=== PATIENT | male | born 1970 | race American Indian/Alaskan Native ===

== ENCOUNTER 2017-08-18 13:09 | Emergency (ER) | payer OTHER ==
[2017-08-18 13:25] VITALS: O2SAT 98
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
--- NOTE | 2017-08-18 14:56 | RAD ---
PROCEDURE: Radiographs of the Lumbar Spine. HISTORY: Injury COMPARISON: No prior. FINDINGS: BONES: There is normal alignment of the lumbar vertebral bodies. There is normal lumbar lordosis. There is no acute fracture, spondylolysis or spondylolisthesis. DISC SPACES: The disc heights are maintained. There is multilevel facet arthropathy. OTHER FINDINGS: None. IMPRESSION: No acute fracture, spondylolysis or spondylolisthesis.
[2017-08-18 15:06] VITALS: BP 124/79; PULSE 70; RESP 20; TEMP 98.3
== END 2017-08-18 15:06 | disposition home or self-care (01) ==
LOC: C.ER 13:09
DX: S39.012A Strain of muscle, fascia and tendon of lower back, initial encounter (principal); V43.52XA Car driver injured in collision with other type car in traffic accident, initial encounter; Y92.410 Unspecified street and highway as the place of occurrence of the external cause

== ENCOUNTER 2017-10-31 13:05 | Emergency (ER) | payer OTHER ==
[2017-10-31 13:23] VITALS: RESP 20
[2017-10-31] MEDS ORDERED: Sodium Chloride 0.9% 1,000 ML IV ONE (14:34)
[2017-10-31] MEDS ORDERED: Sodium Chloride 0.9% 1,000 ML ONE (14:49)
[2017-10-31 14:50] LABS: BASO # 0.1 K/uL (0.0-0.2); EOS % 0.3 % (0.0-4.0); HEMOGLOBIN 14.1 g/dL (12.0-18.0); LYMPH # 1.4 K/uL (1.0-4.3); LYMPH % 17.3 % (20.0-40.0); MEAN CELL VOLUME 90.6 fL (80.0-94.0); MEAN CORPUSCULAR HEMOGLOBIN 31.7 pg (27.0-31.0); MEAN PLATELET VOLUME 8.7 fL (7.2-11.7); MONO # 0.7 K/uL (0.0-0.8); MONO % 8.8 % (0.0-10.0); NEUT % 72.6 % (50.0-75.0); RBC 4.45 Mil/uL (4.40-5.90); RED CELL DISTRIBUTION WIDTH 12.7 % (11.5-14.5); WHITE BLOOD COUNT 8.2 K/uL (4.8-10.8)
--- NOTE | 2017-10-31 14:51 | C.PDOC ---
History Of Present Illness 47yo male with history of hypertension, diabetes, presents to ED with complaints of multiple episodes of bilious vomiting since yesterday. Patient reports he initially had a headache and after that has the episodes of vomiting. He states his symptoms started after he had [place] food and he was unable to sleep all last night. He denies any associated abdominal pain, diarrhea, chest pain or shortness of breath. Time Seen by Provider: 10/31/17 14:25 Chief Complaint (Nursing): GI Problem History Per: Patient History/Exam Limitations: no limitations Onset/Duration Of Symptoms: Days Current Symptoms Are (Timing): Still Present Associated Symptoms: Vomiting. denies: Fever, Chills, Diarrhea, Urinary Symptoms Additional History Per: Patient Past Medical History Reviewed: Historical Data, Nursing Documentation, Vital Signs Vital Signs: Last Vital Signs Temp 99.1 F 10/31/17 16:46 Pulse 62 10/31/17 16:46 Resp 20 10/31/17 16:46 BP 155/75 H 10/31/17 16:46 Pulse Ox 95 10/31/17 16:46 - Medical History PMH: Diabetes (type 2), HTN Surgical History: No Surg Hx Family History: States: No Known Family Hx, Unknown Family Hx - Social History Hx Tobacco Use: No Hx Alcohol Use: Yes Hx Substance Use: Yes - Immunization History Hx Tetanus Toxoid Vaccination: No Hx Influenza Vaccination: Yes Hx Pneumococcal Vaccination: No Review Of Systems Except As Marked, All Systems Reviewed And Found Negative. Constitutional: Negative for: Fever, Chills Cardiovascular: Negative for: Chest Pain Respiratory: Negative for: Shortness of Breath Gastrointestinal: Positive for: Nausea, Vomiting. Negative for: Abdominal Pain , Diarrhea Genitourinary: Negative for: Dysuria Physical Exam - Physical Exam Appears: Non-toxic, No Acute Distress Skin: Warm, Dry Head: Atraumatic, Normacephalic Eye(s): bilateral: Normal Inspection Oral Mucosa: Moist Neck: Normal ROM, Supple Chest: Symmetrical Cardiovascular: Rhythm Regular Respiratory: Normal Breath Sounds Gastrointestinal/Abdominal: Normal Exam, Soft, No Tenderness, No Mass, No Guarding, No Rebound Back: Normal Inspection Extremity: Normal ROM, No Pedal Edema, No Deformity Neurological/Psych: Oriented x3 ED Course And Treatment - Laboratory Results Result Diagrams: 10/31/17 14:47 10/31/17 14:47 O2 Sat by Pulse Oximetry: 99 (RA) Pulse Ox Interpretation: Normal - CT Scan/US CT Head Other Rad Studies (CT/US): Radiology Report Reviewed CT/US Interpretation: FINDINGS: HEMORRHAGE: No acute parenchymal, subarachnoid nor extra-axial hemorrhage. BRAIN: No evidence of large acute infarct. Questionable minimal chronic periventricular white matter ischemic changes. No obvious parenchymal nor extra-axial mass or collection seen on this noncontrast study. VENTRICLES: No obstructive hydrocephalus. CALVARIUM: There are no acute calvarial fractures. Iron made of what probably represents scarring changes in the mid frontal scalp. PARANASAL SINUSES: Unremarkable as visualized. No significant inflammatory changes. MASTOID AIR CELLS: Unremarkable as visualized. No inflammatory changes. OTHER FINDINGS: None. IMPRESSION: No evidence of acute intracranial hemorrhage. Questionable minimal chronic periventricular white matter ischemic changes. Medical Decision Making Medical Decision Making: Impression: Vomiting Plan: -- CT Head w/o contrast -- Labs -- IV Fluids -- Pepcid 20mg IV -- Zofran 4mg IV Progress: 1644 Labs reviewed and shows no clinically significant abnormalities. CT head reviewed, report indicates no hemorrhage. Patient reports feeling much better and is stable for discharge home. Instructed to follow up with PMD in 2-3 days. Disposition - Disposition Disposition: HOME/ ROUTINE Disposition Time: 16:46 Condition: GOOD Additional Instructions: Follow up with your pcp in a few days and take pepcid as directed. Prescriptions: Famotidine [Pepcid] 40 mg PO DAILY 15 Days #15 tablet Instructions: Nausea and Vomiting, Adult (DC) Forms: [facility] (Cam[place]onian), Work Excuse - Clinical Impression Clinical Impression: Gastroenteritis - Scribe Statement The provider has reviewed the documentation as recorded by the Evonibe (Purnima Diane) Provider Attestation: All medical record entries made by the Evonibe were at my direction and personally dictated by me. I have reviewed the chart and agree that the record accurately reflects my personal performance of the history, physical exam, medical decision making, and the department course for this patient. I have also personally directed, reviewed, and agree with the discharge instructions and disposition.
--- NOTE | 2017-10-31 14:56 | RAD ---
PROCEDURE: CHEST RADIOGRAPH, 1 VIEW HISTORY: abd pain COMPARISON: . Comparison made with chest radiograph performed as part of very obstructive series 3 06/10/2013. FINDINGS: LUNGS: No acute infiltrates. PLEURA: No pneumothorax or pleural fluid seen. CARDIOVASCULAR: Normal. OSSEOUS STRUCTURES: No significant abnormalities. VISUALIZED UPPER ABDOMEN: Normal. OTHER FINDINGS: None. IMPRESSION: No acute infiltrates. .
[2017-10-31 15:01] LABS: ALB/GLOB RATIO 1.5 (1.0-2.1); ALBUMIN 5.1 g/dL (3.5-5.0); ALT/SGPT 38 U/L (21-72); AST/SGOT 23 U/L (17-59); BLOOD UREA NITROGEN 20 mg/dL (9-20); CALCIUM 10.1 mg/dl (8.6-10.4); GFR AFRICAN-AMERICAN > 60; GFR NON-AFRICAN AMERICAN 59; LIPASE 130 U/L (23-300)
--- NOTE | 2017-10-31 15:54 | CT ---
PROCEDURE: CT scan of the brain dated 10/31/2017 HISTORY: Headache and hypertension COMPARISON: None available. TECHNIQUE: Axial computed tomography images were obtained through the head/brain without intravenous contrast. Radiation dose: Total exam DLP = 856.86 mGy-cm. This CT exam was performed using one or more of the following dose reduction techniques: Automated exposure control, adjustment of the mA and/or kV according to patient size, and/or use of iterative reconstruction technique. FINDINGS: HEMORRHAGE: No acute parenchymal, subarachnoid nor extra-axial hemorrhage. BRAIN: No evidence of large acute infarct. Questionable minimal chronic periventricular white matter ischemic changes. No obvious parenchymal nor extra-axial mass or collection seen on this noncontrast study. VENTRICLES: No obstructive hydrocephalus. CALVARIUM: There are no acute calvarial fractures. Iron made of what probably represents scarring changes in the mid frontal scalp PARANASAL SINUSES: Unremarkable as visualized. No significant inflammatory changes. MASTOID AIR CELLS: Unremarkable as visualized. No inflammatory changes. OTHER FINDINGS: None. IMPRESSION: No evidence of acute intracranial hemorrhage. Questionable minimal chronic periventricular white matter ischemic changes.
[2017-10-31 16:47] VITALS: BP 155/75; PULSE 62; TEMP 99.1
[2017-11-01 13:59] VITALS: O2SAT 99
--- NOTE | 2017-11-01 14:38 | CARD ---
APPROVED REPORT EKG Measurement Heart [id number] <Conclusion> Sinus bradycardia Left axis deviation Left ventricular hypertrophy with QRS widening Abnormal ECG
== END 2017-10-31 17:00 | disposition home or self-care (01) ==
LOC: C.ER 13:05
DX: K52.9 Noninfective gastroenteritis and colitis, unspecified (principal)
CPT/HCPCS: 70450; 71045; 80053; 83690; 84484; 85025; 93005; 96374; 96375; 99284; J2405; J7030